=== PATIENT | female | born 1970 | race Caucasian/White ===

== ENCOUNTER 2017-10-25 03:55 | Emergency (ER) | payer OTHER ==
[~2017-10-25] VITALS: Ht 162.6 cm; Wt 90.7 kg
[~2017-10-25 03:55] MED LIST: ADVAIR 100-501 EACH; AFRIN15 ML NS; ALLERCLEAR D-21 EACH; AMARYL2 MG PO; AMOXICILLIN500 M1 PO; ANASPAZ0.125 MG; AUGMENTIN 500-1 EACH PO; BACTRIM DS TAB1 EACH PO; BACTROBAN CREAM30 G1; CEPHALEXIN 500500 M2 PO; CEPHALEXIN 500500 M3 PO; CLARITIN10 MG PO; CLOTRIMAZOLE AF30 GM TP; COLESTIPOL HCL1 G1 PO; CORICIDIN HBP1 EACH; COZAAR 25 MG TA25 M1 PO; COZAAR 50 MG TA50 M2 PO; DIFLUCAN150 M1 PO; DOXYCYCLINE 10100 MG PO; FLOMAX PO; GLIPIZIDE 10 MG10 MG PO; GLUCOSAMINE1000 MG PO; GLYBURIDE 2.52.5 MG PO; HYDROCODONE-AP1 EAC6 PO; IBUPROFEN 200200 M1 PO; IBUPROFEN 800800 MG PO; IBUPROFEN200 M2; IMODIUM A-D1 MG/5 ML; JANUMET XR 50-1 EAC1 PO; KEFLEX500 MG PO; LISINOPRIL10 MG PO; MEDROL DOSPAK21 TA1 PO; MEDROLDOSEPACK PO; MELOXICAM7.5 MG; METFORMIN HCL500 MG PO; MIDOL220 MG PO; NAPROXEN DELAY500 M1 PO; NASAL SPRAY30 ML; NORCO 5-325 TA1 EACH PO; NORFLEX100 MG PO; NYSTATIN1 EA10 MC; OXYCODONE HCL 55 MG PO; PERCOCET 5-3251 EACH PO; POLYSPORIN OINT15 GM TP; PRENATAL; PRILOSEC 20 MG20 MG PO; PROAIR HFA8.5 GM; PROAIR HFA8.5 GM INH; ROBAXIN500 MG PO; SIMVASTATIN20 MG; SIMVASTATIN20 MG PO; VENTOLIN17 GM; VICTOZA0.6 MG/0.1 SUBQ; WELLBUTRIN 75 M75 M1 PO; WELLBUTRIN SR150 MG PO; ZOFRAN ODT4 MG PO; ZPAK PO
[2017-10-25 04:01] VITALS: BP 192/65
[2017-10-25 05:39] LABS: INFLUENZA A ANTIGEN None Detected (None Detect); INFLUENZA B ANTIGEN None Detected (None Detect)
[2017-10-25] MEDS ORDERED: PROMETHAZINE/C118 ML PO (06:04)
[2017-10-25 06:14] VITALS: BP 187/76
== END 2017-10-25 06:15 | disposition home or self-care (01) ==
LOC: M.ERS 03:55 → M.TBA-ER 05:55 → M.ERS 05:55
PROVIDERS: Emergency Medicine
DX: J06.9 Acute upper respiratory infection, unspecified (principal); K21.9 Gastro-esophageal reflux disease without esophagitis; J45.909 Unspecified asthma, uncomplicated; Z86.14 Personal history of Methicillin resistant Staphylococcus aureus infection; Z90.49 Acquired absence of other specified parts of digestive tract; Z90.89 Acquired absence of other organs; Z87.891 Personal history of nicotine dependence

== ENCOUNTER 2018-05-08 09:01 | Emergency (ER) | payer BC ==
[~2018-05-08] VITALS: Ht 162.6 cm; Wt 101.2 kg
[~2018-05-08 09:01] MED LIST changes: +PROMETHAZINE/C118 ML PO
[2018-05-08] MEDS ORDERED: XANAX1 MG PO (09:15)
[2018-05-08] MEDS ORDERED: XYZAL5 MG PO (09:15)
[2018-05-08] MEDS ORDERED: COZAAR 25 MG TA25 M1 PO (09:16)
[2018-05-08] MEDS ORDERED: BUPROPION HCL100 MG PO (09:16)
[2018-05-08] MEDS ORDERED: KLOR-CON 1010 MEQ PO (09:16)
[2018-05-08] MEDS ORDERED: ZOCOR20 MG PO (09:16)
[2018-05-08] MEDS ORDERED: CINNAMON500 MG PO (09:16)
[2018-05-08 09:34] LABS: ABSOLUTE LYMPHOCYTES 0.9 thou/uL (0.8-5.3); ABSOLUTE MONOCYTES 0.2 thou/uL (0.0-1.2); ABSOLUTE NEUTROPHILS 3.3 thou/uL (1.6-8.1); BASOPHILS 0.4 %; EOSINOPHILS 0.6 %; HEMATOCRIT 32.5 % (37.0-47.0); HEMOGLOBIN 10.5 gm/dL (12.0-15.0); LYMPHOCYTES 20.9 %; MCH 26.1 pg (26.0-34.0); MCHC 32.2 g/dL (28.0-37.0); MCV 80.8 fL (80.0-100.0); MONOCYTES 5.3 %; NUCLEATED RBCS 0 /100WBC; PLATELET COUNT* 153 thou/uL (150-400); POLYS 72.8 %; RBC 4.01 mil/uL (4.20-5.00); WBC 4.5 thou/uL (4.0-11.0)
[2018-05-08 09:59] LABS: CALCIUM 9.2 mg/dL (8.5-10.1); CREATININE 0.6 mg/dL (0.6-1.3); POTASSIUM 3.9 mmol/L (3.5-5.1)
[2018-05-08 10:04] LABS: ALBUMIN 3.6 g/dL (3.4-5.0); TOTAL BILIRUBIN 0.5 mg/dL (<0.1-1.0); TOTAL PROTEIN 6.8 g/dL (6.4-8.2)
[2018-05-08 10:10] VITALS: BP 151/78
== END 2018-05-08 10:11 | disposition home or self-care (01) ==
LOC: M.ERS 09:01
PROVIDERS: Family Medicine
DX: R51 Headache (principal); E11.9 Type 2 diabetes mellitus without complications; K21.9 Gastro-esophageal reflux disease without esophagitis; J45.909 Unspecified asthma, uncomplicated; I10 Essential (primary) hypertension; F32.9 Major depressive disorder, single episode, unspecified; Z90.49 Acquired absence of other specified parts of digestive tract; Z87.891 Personal history of nicotine dependence; Z88.5 Allergy status to narcotic agent

== ENCOUNTER 2018-07-09 23:33 | Emergency (ER) | payer BC ==
[~2018-07-09] VITALS: Ht 162.6 cm; Wt 90.7 kg
[~2018-07-09 23:33] MED LIST changes: +BUPROPION HCL100 MG PO; +CINNAMON500 MG PO; +KLOR-CON 1010 MEQ PO; +XANAX1 MG PO; +XYZAL5 MG PO; +ZOCOR20 MG PO
[2018-07-10 00:26] LABS: ABSOLUTE EOSINOPHILS 0.1 thou/uL (0.0-0.7); ABSOLUTE LYMPHOCYTES 1.3 thou/uL (0.8-5.3); ABSOLUTE MONOCYTES 0.4 thou/uL (0.0-1.2); ABSOLUTE NEUTROPHILS 4.1 thou/uL (1.6-8.1); BASOPHILS 0.5 %; EOSINOPHILS 1.1 %; HEMATOCRIT 32.5 % (37.0-47.0); HEMOGLOBIN 10.4 gm/dL (12.0-15.0); LYMPHOCYTES 22.2 %; MCH 26.6 pg (26.0-34.0); MCHC 31.8 g/dL (28.0-37.0); MCV 83.6 fL (80.0-100.0); MONOCYTES 6.1 %; MPV 9.5 fl. (7.2-11.1); NUCLEATED RBCS 0 /100WBC; PLATELET COUNT* 164 thou/uL (150-400); POLYS 70.1 %; RBC 3.89 mil/uL (4.20-5.00); RDW-CV 15.2 % (10.5-14.5); WBC 5.8 thou/uL (4.0-11.0)
[2018-07-10 00:30] LABS: CALCIUM 8.7 mg/dL (8.5-10.1); CREATININE 0.6 mg/dL (0.6-1.3); POTASSIUM 3.8 mmol/L (3.5-5.1)
[2018-07-10] MEDS ORDERED: NORCO 5-325 TA1 EACH PO (00:44)
[2018-07-10] MEDS ORDERED: NEURONTIN 300300 M1 PO (00:44)
[2018-07-10] MEDS ORDERED: NABUMETONE 750750 M1 PO (00:44)
[2018-07-10 00:56] VITALS: BP 121/57
== END 2018-07-10 01:00 | disposition home or self-care (01) ==
LOC: M.ERS 23:33
PROVIDERS: Nurse Practitioner Family
DX: M54.32 Sciatica, left side (principal); E11.65 Type 2 diabetes mellitus with hyperglycemia; K58.9 Irritable bowel syndrome, unspecified; K21.9 Gastro-esophageal reflux disease without esophagitis; Z90.49 Acquired absence of other specified parts of digestive tract; J45.909 Unspecified asthma, uncomplicated; I10 Essential (primary) hypertension; F32.9 Major depressive disorder, single episode, unspecified; Z87.891 Personal history of nicotine dependence; Z88.5 Allergy status to narcotic agent; Z91.018 Allergy to other foods

== ENCOUNTER 2019-10-04 16:10 | Emergency (ER) | payer OTHER ==
[~2019-10-04] VITALS: Ht 162.6 cm; Wt 84.4 kg
[~2019-10-04 16:10] MED LIST changes: +NABUMETONE 750750 M1 PO; +NEURONTIN 300300 M1 PO
[2019-10-04] MEDS ORDERED: GLIMEPIRIDE4 MG (16:32)
[2019-10-04] MEDS ORDERED: JANUMET XR 1001 EACH PO (16:32)
[2019-10-04] MEDS ORDERED: OZEMPIC0.25 MG/0. (16:32)
[2019-10-04] MEDS ORDERED: ONZETRA XSAIL11 MG PO (16:33)
[2019-10-04] MEDS ORDERED: TROKENDI XR100 MG PO (16:33)
[2019-10-04] MEDS ORDERED: SINGULAIR 10 MG10 M1 PO (16:37)
[2019-10-04 17:03] LABS: ABSOLUTE EOSINOPHILS 0.1 thou/uL (0.0-0.7); ABSOLUTE LYMPHOCYTES 1.6 thou/uL (0.8-5.3); ABSOLUTE MONOCYTES 0.4 thou/uL (0.0-1.2); ABSOLUTE NEUTROPHILS 4.7 thou/uL (1.6-8.1); BASOPHILS 0.5 %; EOSINOPHILS 0.9 %; HEMATOCRIT 36.2 % (37.0-47.0); HEMOGLOBIN 12.2 gm/dL (12.0-15.0); LYMPHOCYTES 23.4 %; MCH 29.4 pg (26.0-34.0); MCHC 33.8 g/dL (28.0-37.0); MCV 86.8 fL (80.0-100.0); MONOCYTES 6.5 %; MPV 9.8 fl. (7.2-11.1); NUCLEATED RBCS 0 /100WBC; PLATELET COUNT* 174 thou/uL (150-400); POLYS 68.7 %; RBC 4.16 mil/uL (4.20-5.00); RDW-CV 14.2 % (10.5-14.5); WBC 6.9 thou/uL (4.0-11.0)
[2019-10-04 17:12] LABS: CALCIUM 8.6 mg/dL (8.5-10.1); CREATININE 0.7 mg/dL (0.6-1.3); POTASSIUM 3.8 mmol/L (3.5-5.1)
[2019-10-04 17:17] LABS: ALBUMIN 3.7 g/dL (3.4-5.0); TOTAL BILIRUBIN 0.3 mg/dL (<0.1-1.0)
[2019-10-04] MEDS ORDERED: BUTALB-APAP-CA1 EACH PO (19:48)
[2019-10-04 20:11] VITALS: BP 140/67
== END 2019-10-04 20:13 | disposition home or self-care (01) ==
LOC: M.ERS 16:10
PROVIDERS: Nurse Practitioner Family
DX: G43.009 Migraine without aura, not intractable, without status migrainosus (principal); K21.9 Gastro-esophageal reflux disease without esophagitis; E11.9 Type 2 diabetes mellitus without complications; Z87.891 Personal history of nicotine dependence; Z88.5 Allergy status to narcotic agent; Z91.018 Allergy to other foods; Z90.49 Acquired absence of other specified parts of digestive tract; Z98.51 Tubal ligation status; Z86.14 Personal history of Methicillin resistant Staphylococcus aureus infection; Z90.89 Acquired absence of other organs

== ENCOUNTER 2020-03-09 19:27 | Emergency (ER) | payer OTHER ==
[~2020-03-09] VITALS: Ht 162.6 cm; Wt 86.2 kg
[~2020-03-09 19:27] MED LIST changes: +BUTALB-APAP-CA1 EACH PO; +GLIMEPIRIDE4 MG; +JANUMET XR 1001 EACH PO; +ONZETRA XSAIL11 MG PO; +OZEMPIC0.25 MG/0.; +SINGULAIR 10 MG10 M1 PO; +TROKENDI XR100 MG PO
[2020-03-09 19:54] LABS: URINE BILIRUBIN NEGATIVE (Negative); URINE BLOOD NEGATIVE (Negative); URINE CLARITY CLEAR; URINE COLOR YELLOW; URINE GLUCOSE-RANDOM NEGATIVE (Negative); URINE KETONES NEGATIVE (Negative); URINE LEUKOCYTES-REFLEX NEGATIVE (Negative); URINE NITRITE-REFLEX NEGATIVE (Negative); URINE PROTEIN NEGATIVE (Negative); URINE SPECIFIC GRAVITY >= 1.030 (1.005-1.030); URINE UROBILINOGEN 0.2 E.U./dl (0.2-1.0)
[2020-03-09 20:16] LABS: ABSOLUTE LYMPHOCYTES 1.2 thou/uL (0.8-5.3); ABSOLUTE MONOCYTES 0.3 thou/uL (0.0-1.2); ABSOLUTE NEUTROPHILS 4.9 thou/uL (1.6-8.1); BASOPHILS 0.6 %; EOSINOPHILS 0.6 %; HEMATOCRIT 34.7 % (37.0-47.0); HEMOGLOBIN 11.8 gm/dL (12.0-15.0); LYMPHOCYTES 19.1 %; MCH 29.8 pg (26.0-34.0); MCV 87.8 fL (80.0-100.0); MONOCYTES 4.7 %; MPV 9.9 fl. (7.2-11.1); NUCLEATED RBCS 0 /100WBC; PLATELET COUNT* 135 thou/uL (150-400); RBC 3.96 mil/uL (4.20-5.00); RDW-CV 14.4 % (10.5-14.5); WBC 6.5 thou/uL (4.0-11.0)
[2020-03-09 20:20] LABS: CALCIUM 8.3 mg/dL (8.5-10.1); CREATININE 0.7 mg/dL (0.6-1.3); POTASSIUM 3.2 mmol/L (3.5-5.1)
[2020-03-09 20:25] LABS: ALBUMIN 3.7 g/dL (3.4-5.0); TOTAL BILIRUBIN 0.3 mg/dL (<0.1-1.0); TOTAL PROTEIN 6.7 g/dL (6.4-8.2)
[2020-03-09 20:30] LABS: PROTIME 10.8 Seconds (9.20-11.50)
[2020-03-09] MEDS ORDERED: ZOFRAN ODT4 MG PO (21:39)
[2020-03-09] MEDS ORDERED: HYDROCODON-ACE1 EAC7 PO ×2 (21:39→21:50)
[2020-03-09 21:49] VITALS: BP 121/70
[2020-03-09] MEDS ORDERED: PHENERGAN 25 MG25 M1 PO (21:50)
--- NOTE | 2020-03-10 15:38 | EKG ---
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
== END 2020-03-09 21:50 | disposition home or self-care (01) ==
LOC: M.ERS 19:27
PROVIDERS: Personal Emergency Response Attendant
DX: A08.4 Viral intestinal infection, unspecified (principal); R42 Dizziness and giddiness; K58.9 Irritable bowel syndrome, unspecified; K21.9 Gastro-esophageal reflux disease without esophagitis; G43.909 Migraine, unspecified, not intractable, without status migrainosus; E11.9 Type 2 diabetes mellitus without complications; I10 Essential (primary) hypertension; Z90.49 Acquired absence of other specified parts of digestive tract; Z98.51 Tubal ligation status; Z98.890 Other specified postprocedural states; Z86.14 Personal history of Methicillin resistant Staphylococcus aureus infection; Z87.891 Personal history of nicotine dependence; Z88.5 Allergy status to narcotic agent; Z91.018 Allergy to other foods

== ENCOUNTER 2021-02-17 17:57 | Emergency (ER) | payer OTHER ==
[~2021-02-17] VITALS: Ht 162.6 cm; Wt 81.7 kg
[~2021-02-17 17:57] MED LIST changes: +HYDROCODON-ACE1 EAC7 PO; +PHENERGAN 25 MG25 M1 PO
[2021-02-17] MEDS ORDERED: APPLE CIDER VI300 MG PO (18:09)
[2021-02-17 18:38] LABS: BE -1.8 mmol/L (-2 to +3); PCO2 35.4 mmHg (35.0-45.0); PO2 72.2 mmHg (75.0-100.0); pH 7.415 (7.340-7.450)
[2021-02-17 18:39] LABS: ABSOLUTE LYMPHOCYTES 0.7 thou/uL (0.8-5.3); ABSOLUTE MONOCYTES 0.2 thou/uL (0.0-1.2); BASOPHILS 0.3 %; EOSINOPHILS 0.1 %; HEMATOCRIT 38.6 % (37.0-47.0); HEMOGLOBIN 12.8 gm/dL (12.0-15.0); LYMPHOCYTES 23.2 %; MCH 28.2 pg (26.0-34.0); MCHC 33.1 g/dL (28.0-37.0); MCV 85.1 fL (80.0-100.0); MONOCYTES 7.2 %; MPV 8.7 fl. (7.2-11.1); NUCLEATED RBCS 0 /100WBC; PLATELET COUNT* 148 thou/uL (150-400); POLYS 69.2 %; RBC 4.53 mil/uL (4.20-5.00); RDW-CV 14.9 % (10.5-14.5); WBC 2.8 thou/uL (4.0-11.0)
[2021-02-17 18:47] LABS: CALCIUM 8.6 mg/dL (8.5-10.1); CREATININE 0.7 mg/dL (0.6-1.3); POTASSIUM 3.5 mmol/L (3.5-5.1)
[2021-02-17 18:58] LABS: ALBUMIN 3.7 g/dL (3.4-5.0); TOTAL BILIRUBIN 0.2 mg/dL (<0.1-1.0); TOTAL PROTEIN 7.3 g/dL (6.4-8.2)
[2021-02-17] MEDS ORDERED: VENTOLIN HFA 1818 GM INH (20:17)
[2021-02-17] MEDS ORDERED: ZPAK PO (20:17)
[2021-02-17 21:01] VITALS: BP 103/50
--- NOTE | 2021-02-18 10:45 | EKG ---
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 : 1970 Requested By: Iveth Medrano Order Number: [id number] MD: Jorge Cullen Measurements Intervals [place] Rate: 96 P: 44 RI: 166 QRS: 3 QRSD: 75 T: 16 QT: 324 QTc: 410 Interpretive Statements Sinus rhythm Low voltage, precordial leads Baseline wander in lead(s) II,III,aVF Compared to ECG 03/09/2020 20:12:44 no change Electronically Signed On 02-18-2021 10:45:31 CDT by Jorge Cullen [email or web address] <ELECTRONICALLY SIGNED> By: Jorge Cullen MD, [facility] 02/18/21 1045 1842 1842 Jorge Cullen MD, [facility] /EPI
== END 2021-02-17 21:02 | disposition home or self-care (01) ==
LOC: M.ERS 17:57
PROVIDERS: Nurse Practitioner Family
DX: U07.1 COVID-19 (principal); E11.9 Type 2 diabetes mellitus without complications; G43.909 Migraine, unspecified, not intractable, without status migrainosus; K21.9 Gastro-esophageal reflux disease without esophagitis; J45.909 Unspecified asthma, uncomplicated; Z88.5 Allergy status to narcotic agent; Z91.018 Allergy to other foods; Z90.49 Acquired absence of other specified parts of digestive tract; Z90.89 Acquired absence of other organs; Z98.51 Tubal ligation status; Z86.14 Personal history of Methicillin resistant Staphylococcus aureus infection; Z87.891 Personal history of nicotine dependence

== ENCOUNTER 2021-02-19 20:33 | Inpatient (IN) | payer OTHER ==
[~2021-02-19] VITALS: Ht 162.6 cm; Wt 76.7 kg
[~2021-02-19 20:33] MED LIST changes: +APPLE CIDER VI300 MG PO; +VENTOLIN HFA 1818 GM INH
[2021-02-19 20:48] VITALS: BP 134/70
[2021-02-19 21:31] LABS: ABSOLUTE LYMPHOCYTES 0.4 thou/uL (0.8-5.3); ABSOLUTE MONOCYTES 0.1 thou/uL (0.0-1.2); ABSOLUTE NEUTROPHILS 2.6 thou/uL (1.6-8.1); BASOPHILS 0.1 %; EOSINOPHILS 0.2 %; HEMATOCRIT 35.3 % (37.0-47.0); HEMOGLOBIN 12.1 gm/dL (12.0-15.0); LYMPHOCYTES 11.1 %; MCH 28.6 pg (26.0-34.0); MCHC 34.1 g/dL (28.0-37.0); MCV 83.7 fL (80.0-100.0); MONOCYTES 4.6 %; MPV 8.8 fl. (7.2-11.1); NUCLEATED RBCS 0 /100WBC; PLATELET COUNT* 160 thou/uL (150-400); RBC 4.22 mil/uL (4.20-5.00); RDW-CV 15.1 % (10.5-14.5); WBC 3.2 thou/uL (4.0-11.0)
[2021-02-19 21:32] LABS: BE -0.2 mmol/L (-2 to +3); PCO2 36.5 mmHg (35.0-45.0); PO2 70.6 mmHg (75.0-100.0); pH 7.432 (7.340-7.450)
[2021-02-19 21:48] LABS: CALCIUM 8.6 mg/dL (8.5-10.1); CREATININE 0.7 mg/dL (0.6-1.3); POTASSIUM 3.3 mmol/L (3.5-5.1)
[2021-02-19 21:58] LABS: ALBUMIN 3.4 g/dL (3.4-5.0); TOTAL BILIRUBIN 0.1 mg/dL (<0.1-1.0); TOTAL PROTEIN 6.5 g/dL (6.4-8.2)
[2021-02-19 23:22] VITALS: BP 115/54
[2021-02-20] VITALS (7 sets, daily range): BP systolic 111–136; BP diastolic 56–68
--- NOTE | 2021-02-20 14:03 | EKG ---
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 : 1970 Requested By: Iveth Medrano Order Number: [id number] MD: Ede Hussein Measurements Intervals [place] Rate: 97 P: 39 CT: 154 QRS: -4 QRSD: 70 T: 6 QT: 326 QTc: 414 Interpretive Statements Sinus rhythm Low voltage, precordial leads Compared to ECG 02/17/2021 18:42:20 No significant changes Electronically Signed On 02-20-2021 14:03:37 CDT by Ede Hussein [email or web address] <ELECTRONICALLY SIGNED> By: Ede Hussein MD, [facility] 02/20/21 1403 01 01 Ede Hussein MD, [facility] /EPI
[2021-02-21] VITALS (7 sets, daily range): BP systolic 92–120; BP diastolic 49–66
[2021-02-21 05:07] LABS: HEMATOCRIT 31.8 % (37.0-47.0); HEMOGLOBIN 10.5 gm/dL (12.0-15.0); MCH 28.1 pg (26.0-34.0); MCV 85.1 fL (80.0-100.0); MPV 9.8 fl. (7.2-11.1); RBC 3.73 mil/uL (4.20-5.00); RDW-CV 14.8 % (10.5-14.5); WBC 3.3 thou/uL (4.0-11.0)
[2021-02-21 05:11] LABS: CALCIUM 8.2 mg/dL (8.5-10.1); CREATININE 0.6 mg/dL (0.6-1.3); POTASSIUM 3.8 mmol/L (3.5-5.1)
[2021-02-22] VITALS (17 sets, daily range): BP systolic 95–129; BP diastolic 41–71
[2021-02-22 04:39] LABS: HEMATOCRIT 33.8 % (37.0-47.0); HEMOGLOBIN 11.2 gm/dL (12.0-15.0); MCH 28.3 pg (26.0-34.0); MCHC 33.2 g/dL (28.0-37.0); MCV 85.1 fL (80.0-100.0); MPV 8.5 fl. (7.2-11.1); RBC 3.97 mil/uL (4.20-5.00); RDW-CV 15.5 % (10.5-14.5); WBC 5.2 thou/uL (4.0-11.0)
[2021-02-22 04:55] LABS: CREATININE 0.6 mg/dL (0.6-1.3); POTASSIUM 3.6 mmol/L (3.5-5.1)
[2021-02-23] VITALS (20 sets, daily range): BP systolic 93–131; BP diastolic 42–70
[2021-02-23 05:22] LABS: HEMATOCRIT 33.4 % (37.0-47.0); HEMOGLOBIN 11.2 gm/dL (12.0-15.0); MCH 28.7 pg (26.0-34.0); MCHC 33.7 g/dL (28.0-37.0); MPV 8.5 fl. (7.2-11.1); RBC 3.93 mil/uL (4.20-5.00); RDW-CV 14.9 % (10.5-14.5); WBC 4.7 thou/uL (4.0-11.0)
[2021-02-23 05:30] LABS: CALCIUM 8.2 mg/dL (8.5-10.1); CREATININE 0.5 mg/dL (0.6-1.3); POTASSIUM 3.6 mmol/L (3.5-5.1)
[2021-02-24] VITALS (24 sets, daily range): BP systolic 92–126; BP diastolic 37–66
[2021-02-24 04:37] LABS: HEMATOCRIT 35.4 % (37.0-47.0); HEMOGLOBIN 11.5 gm/dL (12.0-15.0); MCH 27.8 pg (26.0-34.0); MCHC 32.6 g/dL (28.0-37.0); MCV 85.3 fL (80.0-100.0); MPV 8.3 fl. (7.2-11.1); RBC 4.15 mil/uL (4.20-5.00); RDW-CV 15.5 % (10.5-14.5); WBC 7.6 thou/uL (4.0-11.0)
[2021-02-24 04:52] LABS: CALCIUM 8.6 mg/dL (8.5-10.1); CREATININE 0.5 mg/dL (0.6-1.3); POTASSIUM 3.5 mmol/L (3.5-5.1)
[2021-02-24 09:36] LABS: PCO2 45.4 mmHg (35.0-45.0); PO2 75.7 mmHg (75.0-100.0)
[2021-02-25] VITALS (46 sets, daily range): BP systolic 80–178; BP diastolic 41–79
[2021-02-25 08:10] LABS: HEMATOCRIT 34.3 % (37.0-47.0); HEMOGLOBIN 11.1 gm/dL (12.0-15.0); MCH 27.4 pg (26.0-34.0); MCHC 32.3 g/dL (28.0-37.0); MCV 84.9 fL (80.0-100.0); MPV 8.4 fl. (7.2-11.1); RBC 4.04 mil/uL (4.20-5.00); RDW-CV 15.7 % (10.5-14.5)
[2021-02-25 08:23] LABS: CALCIUM 8.2 mg/dL (8.5-10.1); CREATININE 0.6 mg/dL (0.6-1.3); POTASSIUM 3.3 mmol/L (3.5-5.1)
[2021-02-25 13:46] LABS: BE 0.3 mmol/L (-2 to +3); PO2 106.2 mmHg (75.0-100.0)
[2021-02-25 13:49] LABS: PCO2 65.4 mmHg (35.0-45.0)
[2021-02-25 14:23] LABS: HEMOGLOBIN 10.5 gm/dL (12.0-15.0); MCH 27.7 pg (26.0-34.0); MCHC 31.9 g/dL (28.0-37.0); MPV 8.3 fl. (7.2-11.1); RBC 3.79 mil/uL (4.20-5.00); RDW-CV 15.5 % (10.5-14.5)
[2021-02-25 14:31] LABS: CALCIUM 7.6 mg/dL (8.5-10.1); CREATININE 0.9 mg/dL (0.6-1.3); POTASSIUM 3.8 mmol/L (3.5-5.1)
[2021-02-25 15:42] LABS: BE -0.4 mmol/L (-2 to +3); PCO2 45.6 mmHg (35.0-45.0); pH 7.362 (7.340-7.450)
[2021-02-26] VITALS (63 sets, daily range): BP systolic 84–173; BP diastolic 39–75
[2021-02-26 04:16] LABS: HEMATOCRIT 32.5 % (37.0-47.0); HEMOGLOBIN 10.7 gm/dL (12.0-15.0); MCH 28.1 pg (26.0-34.0); MCHC 32.8 g/dL (28.0-37.0); MCV 85.8 fL (80.0-100.0); MPV 8.8 fl. (7.2-11.1); RBC 3.79 mil/uL (4.20-5.00); RDW-CV 15.6 % (10.5-14.5); WBC 5.9 thou/uL (4.0-11.0)
[2021-02-26 04:22] LABS: CALCIUM 8.3 mg/dL (8.5-10.1); CREATININE 0.8 mg/dL (0.6-1.3); POTASSIUM 3.2 mmol/L (3.5-5.1)
[2021-02-26 08:31] LABS: BE 8.6 mmol/L (-2 to +3); PCO2 47.3 mmHg (35.0-45.0)
[2021-02-26 08:37] LABS: PO2 59.4 mmHg (75.0-100.0)
[2021-02-26 14:36] LABS: APTT 22.4 Seconds (25.0-31.3); INR 1.1; PROTIME 11.3 Seconds (9.20-11.50)
[2021-02-26 17:12] LABS: PCO2 46.5 mmHg (35.0-45.0); pH 7.428 (7.340-7.450)
[2021-02-26 17:14] LABS: PO2 57.1 mmHg (75.0-100.0)
[2021-02-26 17:19] LABS: CALCIUM 7.9 mg/dL (8.5-10.1); CREATININE 0.6 mg/dL (0.6-1.3); MAGNESIUM 2.3 mg/dL (1.8-2.4); PHOSPHORUS* 2.7 mg/dL (2.5-4.9); POTASSIUM 4.4 mmol/L (3.5-5.1)
[2021-02-26 17:54] LABS: ALBUMIN 2.1 g/dL (3.4-5.0); DIRECT BILIRUBIN 0.2 mg/dL (<0.1-0.3); TOTAL BILIRUBIN 0.4 mg/dL (<0.1-1.0); TOTAL PROTEIN 5.9 g/dL (6.4-8.2)
--- NOTE | 2021-02-26 22:16 | CON ---
[address] [address] CONSULTATION Name: JILLIAN EL Room: [address] IN .R.#: [id number] Admission: 02/19/21 Attend Phys: Maxx Machuca MD Discharge: Date of : 68 Report #: [id number] THIS REPORT FOR: cc: Sanket Youngblood MD, Anthony MD Pervez,Evan DE LEON ~ DOC #: [id number] Evan Christianson MD CONSULT REQUESTED BY: Dr. Cortez. INDICATION FOR CONSULTATION: Acute respiratory failure secondary to COVID-19. HISTORY OF PRESENT ILLNESS: The patient is a 50-year-old female. She is admitted here initially on 02/19 with COVID-19. There are other family members also admitted to this hospital with COVID-19. She has a past medical history as mentioned below. This does include a history of diabetes as well as MRSA infections, as well as bronchial asthma. Initially, the patient is noted to be saturating 77% on room air. She initially was maintaining O2 saturation with nasal cannula. She has been treated with dexamethasone at 6 mg as well as remdesivir severe. She, I understand, may have recently received Raheem and Raheem COVID-19 vaccine. She has not received plasma or Actemra. The patient's respiratory status has gradually declined to the point that she has been endotracheally intubated yesterday. The patient currently is on 100% FiO2. She is on 12 of PEEP. She is maintaining O2 saturation in the low 90s. She continues to have a high-grade fever up to 38.0 yesterday. The patient is afebrile today. The patient is sedated with propofol, is on low dose norepinephrine. She is unable to provide a further history or review of systems. PAST MEDICAL HISTORY: Bronchial asthma, MRSA infections, diabetes, GERD, irritable bowel syndrome, bladder incontinence, bladder sling surgery, appendectomy, tonsillectomy, tubal ligation, left shoulder surgery, hypertension, depression, migraines. SOCIAL HISTORY: There is a previous history of smoking, unable to quantify at this time. No known history of heavy alcohol use. She is reported to use some alcohol, unable to quantify exactly. No known history of illegal drug use. CURRENT MEDICATIONS: List in [employer] reviewed. HOME MEDICATIONS: List in [employer] reviewed. ALLERGIES: M[place]PHINE [place] [address] CONSULTATION Name: JILLIAN EL Room: [address]#: [id number] Admission: 02/19/21 Attend Phys: Maxx Machuca MD Discharge: Date of : 68 Report #: [id number] FAMILY HISTORY: Her son and also got admitted to this hospital with COVID-19. PHYSICAL EXAMINATION: GENERAL: She is sedated with propofol, is currently at RASS -2. VITAL SIGNS: Has a pulse of 89 and a blood pressure of 110/56, saturating 92-93%. She is on pressure control mode of ventilation, pressure control 22, rate 22, having a tidal volume of 450-500, PEEP is 12. She was not overbreathing the ventilator, but I cut down the rate to 18. She continued to breathe at 22. HEENT: Normocephalic and atraumatic. Pupils are bilaterally equal and somewhat dilated. Endotracheal tube was in position. NECK: Does not show raised JVP asymmetry, mass or lymph nodes. She has a central line in place. CHEST: Symmetrical expansion on inspection and palpation. On auscultation, breath sounds are bilaterally equal, but mildly decreased. No added sounds. HEART: Regular. There is no murmur. ABDOMEN: Soft and nontender. EXTREMITIES: Lower extremities show no edema and no calf tenderness. SKIN: Dry and intact. NEUROLOGIC: Moves all extremities bilaterally equally to pain. Note that she is sedated with propofol. LABORATORY DATA: The patient's chest x-ray from yesterday is reviewed. This shows worsening bilateral infiltrates and ARDS secondary to COVID-19. The patient's lab work is in [employer] and this is reviewed. Low potassium today is noted. Metabolic alkalosis on arterial blood gases with marked hypoxemia noted. ASSESSMENT AND PLAN: 1. Acute hypoxemic respiratory failure secondary to COVID-19. At this time, I would recommend continuing with propofol. I will go ahead and add a fentanyl drip. We will follow propofol related labs. We will use p.r.n. Versed. Recommend that we place an A-line. Note that her potassium is low, which I am replacing. Once this is replaced, I intend to repeat labs and then we will see if we can diurese her, possibly with some albumin as well. Tentatively, I plan to prone her this evening, but I will reassess this evening. We will reassess the ventilator once Arterial blood gases are repeated this afternoon. Chest x-ray today is also pending. 2. COVID-19 with ARDS. She has received 5 doses of remdesivir already, I requested 5 more. Considering severe hypoxemia, I would go ahead and increase the Decadron dose to 8 mg b.i.d. Note that the current guidelines allow up to 10 b.i.d., with a definite benefit at 6 mg. I would recommend that we go ahead and give one dose of Actemra as she appears t ohave cytokine storm. [address] [address] CONSULTATION Name: JILLIAN EL Room: [address] ADM IN M.R.#: [id number] Admission: 02/19/21 Attend Phys: Maxx Machuca MD Discharge: Date of : 68 Report #: [id number] At this time, I do not feel strongly either way regarding administering convalescent plasma. I will review with the ID service, which are also being consulted. Expect limited benefit from additional doses of Remdesivir but still favour 5 more doses as very hypoxic and benefit > risk . We will follow LFTs. 3. Pulmonary infiltrates. These have been worsening. She has also been spiking a fever, it has also been 1 week. That she has been here, it has been 1 week before that, then understand she was COVID-19 positive. Therefore, I do favor that we cover for bacterial infections. We will do cultures and serologies prior to this. We will start cefepime. I will review with ID. My suspicion of MRSA infection at this time is not high, but she is reported to have had 3 MRSA infections in the past therefore at least for 48 hrs will cover MRSA as well. Will start with broad Abx then narrow per C/S and serlogies. 4. Bronchial asthma/history of smoking. Steroid as above, also on DuoNeb. 5. Hypotension/fluid and electrolytes. Hopefully, blood pressure will increase as we add fentanyl and cut back on propofol. Although, I am continuing with propofol as well. We will do an echocardiogram. We will replace potassium. If blood pressure is stable, then I will consider diuresis this evening. 6. Diabetes. Recommend increasing insulin as needed to maintain blood glucose as less than 200. 7. Evaluation with thromboembolic phenomena/deep venous thrombosis prophylaxis. I increased Lovenox to 40 b.i.d. intermediate dose. We will do an echocardiogram. If D-dimer is elevated, then we will do venous Dopplers. She is not stable to do a CTA chest. 8. Gastroesophageal reflux disease/gastrointestinal prophylaxis, Protonix. 9. Clostridium difficile prophylaxis. We will add Lactinex. The patient is critically ill at this time. Total time spent providing critical care to this patient today is about 1 hour. Evan Christianson MD AP/CHONG <ELECTRONICALLY SIGNED> By: Evan Christianson MD 02/26/21 2216 1050 [id number] Christianson MD /nt
[2021-02-27] VITALS (38 sets, daily range): BP systolic 97–164; BP diastolic 47–72
[2021-02-27 04:40] LABS: HEMATOCRIT 29.6 % (37.0-47.0); HEMOGLOBIN 9.7 gm/dL (12.0-15.0); MCH 27.8 pg (26.0-34.0); MCHC 32.7 g/dL (28.0-37.0); MCV 85.1 fL (80.0-100.0); NUCLEATED RBCS 0 /100WBC; PLATELET COUNT* 191 thou/uL (150-400); RBC 3.48 mil/uL (4.20-5.00); RDW-CV 15.5 % (10.5-14.5); WBC 4.5 thou/uL (4.0-11.0)
[2021-02-27 04:47] LABS: LIPASE 51 U/L (73-393); TRIGLYCERIDE 154 mg/dL (<150)
[2021-02-27 04:56] LABS: ALBUMIN 2.6 g/dL (3.4-5.0); CALCIUM 7.9 mg/dL (8.5-10.1); CREATININE 0.7 mg/dL (0.6-1.3); MAGNESIUM 2.1 mg/dL (1.8-2.4); POTASSIUM 3.5 mmol/L (3.5-5.1); TOTAL BILIRUBIN 0.3 mg/dL (<0.1-1.0); TOTAL PROTEIN 6.3 g/dL (6.4-8.2)
[2021-02-27 05:42] LABS: ABSOLUTE LYMPHOCYTES 0.1 thou/uL (0.8-5.3); ABSOLUTE MONOCYTES 0.1 thou/uL (0.0-1.2); ABSOLUTE NEUTROPHILS 4.3 thou/uL (1.6-8.1)
[2021-02-27 05:43] LABS: ANISOCYTOSIS 1+; PLATELET ESTIMATE ADEQUATE; POIKILOCYTOSIS 1+
[2021-02-27 08:16] LABS: BE 4.6 mmol/L (-2 to +3); PCO2 43.8 mmHg (35.0-45.0); pH 7.442 (7.340-7.450)
[2021-02-27 08:19] LABS: PO2 140.3 mmHg (75.0-100.0)
--- NOTE | 2021-02-27 08:25 | 2DMMODE ---
[place] [address] 2 D/M-MODE ECHOCARDIOGRAM Name: JILLIAN EL Room: [address] IN .R.#: [id number] Admission: 02/19/21 Attend Phys: Maxx Machuca, Discharge: Date of : 68 Date of Service: 02/27/21 0824 Report #: [id number] THIS REPORT FOR: cc: Sanket Youngblood MD, Anthony MD Blick,Jorge Lundy MD [facility] ~ APPROVED REPORT Study performed: 02/26/2021 15:08:47 EXAM: Comprehensive 2D, Doppler, and color-flow Echocardiogram Patient Location: In-Patient Room #: 003 Status: routine BSA: 1.86 HR: 80 bpm BP: 110/50 mmHg Rhythm: NSR Other Information Study Quality: Good Indications Dyspnea 2D Dimensions IVSd: 11.92 (7-11mm) LVOT Diam: 19.28 (18-24mm) LVDd: 42.03 mm PWd: 8.06 (7-11mm) Ascending Ao: 26.86 (22-36mm) LVDs: 23.27 (25-40mm) Aortic Root: 28.81 mm Volumes Left Atrial Volume (Systole) LA ESV Index: 14.90 mL/m2 Aortic Valve AoV Peak Song.: 1.90 m/s AO Peak Gr.: 14.45 mmHg LVOT Max P.86 mmHg AO Mean Gr.: 7.50 mmHg LVOT Mean P.37 mmHg LVOT Max V: 1.49 m/s AO V2 VTI: 31.29 cm LVOT Mean V: 0.95 m/s TIERRA (VTI): 2.71 cm2 LVOT V1 VTI: 29.03 [place] [address] 2 D/M-MODE ECHOCARDIOGRAM Name: JILLIAN EL Room: [address] IN [facility]#: [id number] Admission: 02/19/21 Attend Phys: Maxx Machuca, Discharge: Date of : 68 Date of Service: 02/27/21 0824 Report #: [id number] Mitral Valve E/A Ratio: 1.52 MV Decel. Time: 225.84 ms MV E Max Song.: 0.80 m/s MV PHT: 65.49 ms MVA (PHT): 3.36 cm2 TDI E/Lateral E': 5.33 E/Medial E': 8.00 Medial E' Song.: 0.10 m/s Lateral E' Song.: 0.15 m/s Pulmonary Valve PV Peak Song.: 1.09 m/s PV Peak Gr.: 4.73 mmHg Tricuspid Valve RAP Estimate: 5.00 mmHg TR Peak Gr.: 30.79 mmHg RVSP: 35.00 mmHg PA Pressure: 35.00 mmHg Left Ventricle The left ventricle is normal size. There is normal LV segmental wall motion. There is normal left ventricular wall thickness. Left ventricular systolic function is normal. The left ventricular ejection fraction is within the normal range. LVEF is 60-65%. The left ventricular diastolic function is normal. Right Ventricle The right ventricle is normal size. The right ventricular systolic function is normal. Atria The left atrium size is normal. The right atrium size is normal. Aortic Valve The aortic valve is normal in structure. No aortic regurgitation is present. There is no aortic valvular stenosis. Mitral Valve The mitral valve is normal in structure. There is trace mitral valve regurgitation noted. No evidence of mitral valve stenosis. Tricuspid Valve The tricuspid valve is normal in structure. Trace tricuspid regurgitation. estimated pa pressure 40 [place] [address] 2 D/M-MODE ECHOCARDIOGRAM Name: JILLIAN EL Room: [address] [place] [facility]#: [id number] Admission: 02/19/21 Attend Phys: Maxx Machuca, Discharge: Date of : 68 Date of Service: 02/27/21 0824 Report #: [id number] Pulmonic Valve The pulmonary valve is normal in structure. Trace pulmonic regurgitation. Great Vessels The aortic root is normal in size. IVC is normal in size and collapses >50% with inspiration. Pericardium There is no pericardial effusion. <Conclusion> LVEF is 60-65%. There is trace mitral valve regurgitation noted. Trace tricuspid regurgitation. estimated pa pressure 40 mm Hg <ELECTRONICALLY SIGNED> By: Jorge Cullen MD, FACC 02/27/21823 3 3 Jorge Cullen MD, FACC /INF
[2021-02-27 11:49] LABS: URINE BILIRUBIN NEGATIVE (Negative); URINE BLOOD NEGATIVE (Negative); URINE CLARITY CLEAR; URINE COLOR YELLOW; URINE GLUCOSE-RANDOM NEGATIVE (Negative); URINE KETONES 1+ (Negative); URINE LEUKOCYTES-REFLEX NEGATIVE (Negative); URINE NITRITE-REFLEX NEGATIVE (Negative); URINE PROTEIN NEGATIVE (Negative); URINE SPECIFIC GRAVITY 1.015 (1.005-1.030); URINE UROBILINOGEN 0.2 E.U./dl (0.2-1.0)
[2021-02-27 15:21] LABS: CALCIUM 8.4 mg/dL (8.5-10.1); CREATININE 0.7 mg/dL (0.6-1.3); POTASSIUM 4.1 mmol/L (3.5-5.1)
[2021-02-27 15:25] LABS: BE 7.2 mmol/L (-2 to +3); PO2 66.9 mmHg (75.0-100.0); pH 7.431 (7.340-7.450)
[2021-02-28] VITALS (28 sets, daily range): BP systolic 93–155; BP diastolic 43–80
[2021-02-28 02:29] LABS: BE 4.5 mmol/L (-2 to +3); pH 7.395 (7.340-7.450)
[2021-02-28 02:32] LABS: PCO2 50.1 mmHg (35.0-45.0); PO2 55.9 mmHg (75.0-100.0)
[2021-02-28 03:44] LABS: ABSOLUTE LYMPHOCYTES 0.2 thou/uL (0.8-5.3); ABSOLUTE MONOCYTES 0.2 thou/uL (0.0-1.2); ABSOLUTE NEUTROPHILS 5.8 thou/uL (1.6-8.1); BASOPHILS 0.1 %; EOSINOPHILS 0.3 %; HEMATOCRIT 28.9 % (37.0-47.0); HEMOGLOBIN 9.3 gm/dL (12.0-15.0); LYMPHOCYTES 3.9 %; MCHC 32.1 g/dL (28.0-37.0); MONOCYTES 2.5 %; MPV 9.4 fl. (7.2-11.1); NUCLEATED RBCS 0 /100WBC; PLATELET COUNT* 186 thou/uL (150-400); POLYS 93.2 %; RBC 3.33 mil/uL (4.20-5.00); RDW-CV 16.2 % (10.5-14.5); WBC 6.2 thou/uL (4.0-11.0)
[2021-02-28 04:04] LABS: PHOSPHORUS* 3.5 mg/dL (2.5-4.9)
[2021-02-28 04:05] LABS: ALBUMIN 2.8 g/dL (3.4-5.0); CALCIUM 8.4 mg/dL (8.5-10.1); CREATININE 0.7 mg/dL (0.6-1.3); MAGNESIUM 2.2 mg/dL (1.8-2.4); POTASSIUM 4.2 mmol/L (3.5-5.1); TOTAL BILIRUBIN 0.3 mg/dL (<0.1-1.0)
[2021-02-28 07:56] LABS: BE 3.3 mmol/L (-2 to +3); PCO2 45.4 mmHg (35.0-45.0); PO2 84.9 mmHg (75.0-100.0); pH 7.414 (7.340-7.450)
[2021-02-28 15:10] LABS: CALCIUM 8.7 mg/dL (8.5-10.1); CREATININE 0.6 mg/dL (0.6-1.3); MAGNESIUM 2.1 mg/dL (1.8-2.4); POTASSIUM 4.6 mmol/L (3.5-5.1)
[2021-02-28 15:32] LABS: BE 5.2 mmol/L (-2 to +3); PCO2 47.4 mmHg (35.0-45.0); PO2 109.4 mmHg (75.0-100.0); pH 7.425 (7.340-7.450)
[2021-02-28 22:06] LABS: MYCOPLASMA PNEUMONIA IgG <100 U/mL (0-99); MYCOPLASMA PNEUMONIA IgM <770 U/mL (0-769)
[2021-03-01] VITALS (33 sets, daily range): BP systolic 95–162; BP diastolic 42–63
[2021-03-01 05:36] LABS: ABSOLUTE LYMPHOCYTES 0.3 thou/uL (0.8-5.3); ABSOLUTE MONOCYTES 0.1 thou/uL (0.0-1.2); ABSOLUTE NEUTROPHILS 3.8 thou/uL (1.6-8.1); BASOPHILS 0.1 %; EOSINOPHILS 0.8 %; HEMATOCRIT 29.1 % (37.0-47.0); HEMOGLOBIN 9.3 gm/dL (12.0-15.0); LYMPHOCYTES 6.2 %; MCH 27.9 pg (26.0-34.0); MCHC 32.1 g/dL (28.0-37.0); MCV 86.8 fL (80.0-100.0); MONOCYTES 3.1 %; MPV 9.3 fl. (7.2-11.1); NUCLEATED RBCS 0 /100WBC; PLATELET COUNT* 166 thou/uL (150-400); POLYS 89.8 %; RBC 3.35 mil/uL (4.20-5.00); RDW-CV 15.6 % (10.5-14.5); WBC 4.2 thou/uL (4.0-11.0)
[2021-03-01 05:59] LABS: ALBUMIN 2.8 g/dL (3.4-5.0); CALCIUM 8.1 mg/dL (8.5-10.1); CREATININE 0.7 mg/dL (0.6-1.3); MAGNESIUM 2.1 mg/dL (1.8-2.4); POTASSIUM 4.2 mmol/L (3.5-5.1); TOTAL BILIRUBIN 0.4 mg/dL (<0.1-1.0); TOTAL PROTEIN 5.9 g/dL (6.4-8.2)
[2021-03-01 08:01] LABS: BE 6.6 mmol/L (-2 to +3); PO2 80.8 mmHg (75.0-100.0); pH 7.414 (7.340-7.450)
[2021-03-01 08:02] LABS: PCO2 51.5 mmHg (35.0-45.0)
[2021-03-02] VITALS (75 sets, daily range): BP systolic 96–124; BP diastolic 33–56
[2021-03-02 05:17] LABS: HEMATOCRIT 29.8 % (37.0-47.0); HEMOGLOBIN 9.7 gm/dL (12.0-15.0); MCH 28.1 pg (26.0-34.0); MCHC 32.5 g/dL (28.0-37.0); MCV 86.4 fL (80.0-100.0); MPV 9.6 fl. (7.2-11.1); NUCLEATED RBCS 0 /100WBC; PLATELET COUNT* 155 thou/uL (150-400); RBC 3.44 mil/uL (4.20-5.00); RDW-CV 15.6 % (10.5-14.5); WBC 4.5 thou/uL (4.0-11.0)
[2021-03-02 05:31] LABS: PHOSPHORUS* 4.5 mg/dL (2.5-4.9)
[2021-03-02 05:42] LABS: ALBUMIN 2.8 g/dL (3.4-5.0); CALCIUM 8.4 mg/dL (8.5-10.1); CREATININE 0.6 mg/dL (0.6-1.3); MAGNESIUM 2.5 mg/dL (1.8-2.4); POTASSIUM 4.7 mmol/L (3.5-5.1); TOTAL BILIRUBIN 0.2 mg/dL (<0.1-1.0); TOTAL PROTEIN 5.9 g/dL (6.4-8.2)
[2021-03-02 06:15] LABS: ABSOLUTE EOSINOPHILS 0.1 thou/uL (0.0-0.7); ABSOLUTE LYMPHOCYTES 0.3 thou/uL (0.8-5.3); ABSOLUTE NEUTROPHILS 4.1 thou/uL (1.6-8.1); METAMYELOCYTES 1 %; MYELOCYTES 1 %; PLATELET ESTIMATE ADEQUATE
[2021-03-02 12:41] LABS: BE 11.1 mmol/L (-2 to +3); pH 7.402 (7.340-7.450)
[2021-03-02 12:46] LABS: PCO2 62.3 mmHg (35.0-45.0)
[2021-03-02 15:11] LABS: CREATININE 0.5 mg/dL (0.6-1.3); POTASSIUM 4.1 mmol/L (3.5-5.1)
[2021-03-03] VITALS (88 sets, daily range): BP systolic 97–139; BP diastolic 34–62
[2021-03-03 05:03] LABS: ABSOLUTE LYMPHOCYTES 0.3 thou/uL (0.8-5.3); ABSOLUTE MONOCYTES 0.2 thou/uL (0.0-1.2); ABSOLUTE NEUTROPHILS 4.4 thou/uL (1.6-8.1); BASOPHILS 0.5 %; EOSINOPHILS 0.9 %; HEMATOCRIT 30.4 % (37.0-47.0); HEMOGLOBIN 9.8 gm/dL (12.0-15.0); LYMPHOCYTES 6.5 %; MCH 27.8 pg (26.0-34.0); MCHC 32.3 g/dL (28.0-37.0); MCV 86.3 fL (80.0-100.0); MONOCYTES 3.3 %; MPV 9.6 fl. (7.2-11.1); NUCLEATED RBCS 0 /100WBC; PLATELET COUNT* 158 thou/uL (150-400); POLYS 88.8 %; RBC 3.52 mil/uL (4.20-5.00); RDW-CV 15.8 % (10.5-14.5)
[2021-03-03 05:25] LABS: CALCIUM 8.2 mg/dL (8.5-10.1); CREATININE 0.5 mg/dL (0.6-1.3); MAGNESIUM 2.3 mg/dL (1.8-2.4); PHOSPHORUS* 3.8 mg/dL (2.5-4.9); POTASSIUM 4.3 mmol/L (3.5-5.1); POTASSIUM 4.4 mmol/L (3.5-5.1); TOTAL BILIRUBIN 0.3 mg/dL (<0.1-1.0)
[2021-03-03 09:04] LABS: PO2 96.1 mmHg (75.0-100.0); pH 7.404 (7.340-7.450)
[2021-03-03 09:05] LABS: PCO2 51.9 mmHg (35.0-45.0)
[2021-03-04] VITALS (64 sets, daily range): BP systolic 94–176; BP diastolic 40–72
[2021-03-04 02:20] LABS: HEMATOCRIT 29.6 % (37.0-47.0); HEMOGLOBIN 9.6 gm/dL (12.0-15.0); MCH 28.1 pg (26.0-34.0); MCHC 32.4 g/dL (28.0-37.0); MCV 86.8 fL (80.0-100.0); RBC 3.41 mil/uL (4.20-5.00); RDW-CV 15.9 % (10.5-14.5); WBC 4.8 thou/uL (4.0-11.0)
[2021-03-04 02:37] LABS: CREATININE 0.5 mg/dL (0.6-1.3); MAGNESIUM 2.2 mg/dL (1.8-2.4); POTASSIUM 4.4 mmol/L (3.5-5.1); TOTAL BILIRUBIN 0.3 mg/dL (<0.1-1.0); TOTAL PROTEIN 5.8 g/dL (6.4-8.2)
[2021-03-04 10:30] LABS: PO2 72.1 mmHg (75.0-100.0); pH 7.464 (7.340-7.450)
[2021-03-04 10:33] LABS: PCO2 53.4 mmHg (35.0-45.0)
[2021-03-05] VITALS (26 sets, daily range): BP systolic 131–180; BP diastolic 45–65
[2021-03-05 04:36] LABS: HEMATOCRIT 32.4 % (37.0-47.0); HEMOGLOBIN 10.5 gm/dL (12.0-15.0); MCHC 32.4 g/dL (28.0-37.0); MCV 86.4 fL (80.0-100.0); MPV 9.9 fl. (7.2-11.1); RBC 3.75 mil/uL (4.20-5.00); WBC 4.4 thou/uL (4.0-11.0)
[2021-03-05 05:07] LABS: ALBUMIN 3.1 g/dL (3.4-5.0); CALCIUM 8.6 mg/dL (8.5-10.1); CREATININE 0.6 mg/dL (0.6-1.3); MAGNESIUM 2.3 mg/dL (1.8-2.4); POTASSIUM 4.6 mmol/L (3.5-5.1); TOTAL BILIRUBIN 0.3 mg/dL (<0.1-1.0)
[2021-03-05 11:16] LABS: LIPASE 112 U/L (73-393)
[2021-03-05 11:28] LABS: TRIGLYCERIDE 249 mg/dL (<150)
[2021-03-05 11:38] LABS: BE 10.2 mmol/L (-2 to +3); PCO2 47.2 mmHg (35.0-45.0); PO2 80.2 mmHg (75.0-100.0); pH 7.487 (7.340-7.450)
[2021-03-05 18:31] LABS: CALCIUM 8.4 mg/dL (8.5-10.1); CREATININE 0.5 mg/dL (0.6-1.3); MAGNESIUM 2.4 mg/dL (1.8-2.4); POTASSIUM 4.4 mmol/L (3.5-5.1)
[2021-03-05 20:07] LABS: URINE BILIRUBIN NEGATIVE (Negative); URINE BLOOD TRACE (Negative); URINE CLARITY SL CLOUDY; URINE COLOR YELLOW; URINE GLUCOSE-RANDOM NEGATIVE (Negative); URINE KETONES NEGATIVE (Negative); URINE LEUKOCYTES-REFLEX 1+ (Negative); URINE NITRITE-REFLEX NEGATIVE (Negative); URINE PROTEIN NEGATIVE (Negative); URINE SPECIFIC GRAVITY <= 1.005 (1.005-1.030); URINE UROBILINOGEN 0.2 E.U./dl (0.2-1.0)
[2021-03-05 20:14] LABS: SQUAMOUS 0-3 Few /LPF (0-3)
[2021-03-05 20:15] LABS: BACTERIA-REFLEX 1-9 Few /HPF (None Seen); CASTS None Seen /LPF (None Seen); CRYSTALS None Seen /LPF (None Seen); URINE RBC 0-2 Rare /HPF (0-2); URINE WBC-REFLEX 0-5 Rare /HPF (0-5); YEAST-REFLEX Present (None Seen)
[2021-03-06] VITALS (27 sets, daily range): BP systolic 110–151; BP diastolic 50–67
[2021-03-06 05:59] LABS: ABSOLUTE LYMPHOCYTES 0.5 thou/uL (0.8-5.3); ABSOLUTE MONOCYTES 0.3 thou/uL (0.0-1.2); BASOPHILS 0.2 %; EOSINOPHILS 0.9 %; HEMATOCRIT 32.7 % (37.0-47.0); HEMOGLOBIN 10.7 gm/dL (12.0-15.0); LYMPHOCYTES 12.7 %; MCH 28.2 pg (26.0-34.0); MCHC 32.8 g/dL (28.0-37.0); MONOCYTES 8.8 %; MPV 10.1 fl. (7.2-11.1); NUCLEATED RBCS 0 /100WBC; PLATELET COUNT* 130 thou/uL (150-400); POLYS 77.4 %; RDW-CV 16.2 % (10.5-14.5); WBC 3.9 thou/uL (4.0-11.0)
[2021-03-06 06:12] LABS: ALBUMIN 3.2 g/dL (3.4-5.0); CALCIUM 8.3 mg/dL (8.5-10.1); CREATININE 0.5 mg/dL (0.6-1.3); MAGNESIUM 2.4 mg/dL (1.8-2.4); POTASSIUM 3.9 mmol/L (3.5-5.1); TOTAL BILIRUBIN 0.4 mg/dL (<0.1-1.0)
[2021-03-06 07:53] LABS: PCO2 41.7 mmHg (35.0-45.0); pH 7.489 (7.340-7.450)
[2021-03-06 15:44] LABS: CALCIUM 8.6 mg/dL (8.5-10.1); CREATININE 0.5 mg/dL (0.6-1.3); POTASSIUM 4.3 mmol/L (3.5-5.1)
[2021-03-07] VITALS (59 sets, daily range): BP systolic 121–155; BP diastolic 54–79
[2021-03-07 05:03] LABS: ABSOLUTE LYMPHOCYTES 0.4 thou/uL (0.8-5.3); ABSOLUTE MONOCYTES 0.4 thou/uL (0.0-1.2); ABSOLUTE NEUTROPHILS 4.1 thou/uL (1.6-8.1); BASOPHILS 0.2 %; EOSINOPHILS 0.5 %; HEMATOCRIT 33.4 % (37.0-47.0); LYMPHOCYTES 8.1 %; MCH 28.1 pg (26.0-34.0); MCHC 32.8 g/dL (28.0-37.0); MCV 85.5 fL (80.0-100.0); MONOCYTES 7.7 %; MPV 9.8 fl. (7.2-11.1); NUCLEATED RBCS 0 /100WBC; PLATELET COUNT* 124 thou/uL (150-400); POLYS 83.5 %; RBC 3.91 mil/uL (4.20-5.00); RDW-CV 16.7 % (10.5-14.5); WBC 4.9 thou/uL (4.0-11.0)
[2021-03-07 05:11] LABS: ALBUMIN 3.4 g/dL (3.4-5.0); CALCIUM 8.9 mg/dL (8.5-10.1); CREATININE 0.6 mg/dL (0.6-1.3); MAGNESIUM 2.5 mg/dL (1.8-2.4); POTASSIUM 4.6 mmol/L (3.5-5.1); TOTAL BILIRUBIN 0.4 mg/dL (<0.1-1.0); TOTAL PROTEIN 6.4 g/dL (6.4-8.2)
[2021-03-07 05:15] LABS: PHOSPHORUS* 5.2 mg/dL (2.5-4.9)
[2021-03-07 16:26] LABS: CALCIUM 8.7 mg/dL (8.5-10.1); CREATININE 0.5 mg/dL (0.6-1.3); MAGNESIUM 2.3 mg/dL (1.8-2.4); POTASSIUM 4.6 mmol/L (3.5-5.1)
[2021-03-07 16:55] LABS: PCO2 39.7 mmHg (35.0-45.0); PO2 72.8 mmHg (75.0-100.0); pH 7.439 (7.340-7.450)
[2021-03-07 16:56] LABS: BE 2.1 mmol/L (-2 to +3)
[2021-03-08] VITALS (79 sets, daily range): BP systolic 111–168; BP diastolic 47–73
[2021-03-08 07:55] LABS: HEMOGLOBIN 11.3 gm/dL (12.0-15.0); MCH 28.6 pg (26.0-34.0); MCHC 33.3 g/dL (28.0-37.0); MCV 85.9 fL (80.0-100.0); MPV 9.6 fl. (7.2-11.1); NUCLEATED RBCS 0 /100WBC; PLATELET COUNT* 114 thou/uL (150-400); RBC 3.96 mil/uL (4.20-5.00); RDW-CV 16.1 % (10.5-14.5); WBC 5.3 thou/uL (4.0-11.0)
[2021-03-08 09:00] LABS: CREATININE 0.5 mg/dL (0.6-1.3); POTASSIUM 4.5 mmol/L (3.5-5.1); TOTAL BILIRUBIN 0.2 mg/dL (<0.1-1.0)
[2021-03-08 09:01] LABS: ALBUMIN 3.4 g/dL (3.4-5.0); CALCIUM 8.8 mg/dL (8.5-10.1); MAGNESIUM 2.3 mg/dL (1.8-2.4); TOTAL PROTEIN 6.4 g/dL (6.4-8.2)
[2021-03-08 10:17] LABS: ABSOLUTE LYMPHOCYTES 0.2 thou/uL (0.8-5.3); ABSOLUTE MONOCYTES 0.3 thou/uL (0.0-1.2); ABSOLUTE NEUTROPHILS 4.8 thou/uL (1.6-8.1); ANISOCYTOSIS 1+; PLATELET ESTIMATE DECREASED; POIKILOCYTOSIS 1+
[2021-03-08 11:40] LABS: BE 3.1 mmol/L (-2 to +3); PCO2 41.2 mmHg (35.0-45.0); PO2 66.4 mmHg (75.0-100.0); pH 7.442 (7.340-7.450)
[2021-03-09] VITALS (17 sets, daily range): BP systolic 108–160; BP diastolic 55–80
[2021-03-09 05:32] LABS: ABSOLUTE LYMPHOCYTES 0.3 thou/uL (0.8-5.3); ABSOLUTE MONOCYTES 0.3 thou/uL (0.0-1.2); ABSOLUTE NEUTROPHILS 6.3 thou/uL (1.6-8.1); BASOPHILS 0.1 %; EOSINOPHILS 0.1 %; HEMOGLOBIN 11.4 gm/dL (12.0-15.0); LYMPHOCYTES 4.9 %; MCH 28.8 pg (26.0-34.0); MCHC 33.4 g/dL (28.0-37.0); MONOCYTES 3.9 %; MPV 9.9 fl. (7.2-11.1); NUCLEATED RBCS 0 /100WBC; PLATELET COUNT* 124 thou/uL (150-400); RBC 3.96 mil/uL (4.20-5.00); RDW-CV 16.8 % (10.5-14.5)
[2021-03-09 05:46] LABS: ALBUMIN 3.4 g/dL (3.4-5.0); CALCIUM 8.4 mg/dL (8.5-10.1); CREATININE 0.5 mg/dL (0.6-1.3); POTASSIUM 3.8 mmol/L (3.5-5.1); TOTAL BILIRUBIN 0.5 mg/dL (<0.1-1.0); TOTAL PROTEIN 6.3 g/dL (6.4-8.2)
[2021-03-09 11:01] LABS: BE 2.4 mmol/L (-2 to +3); PCO2 34.8 mmHg (35.0-45.0); PO2 62.3 mmHg (75.0-100.0); pH 7.484 (7.340-7.450)
[2021-03-10] VITALS: BP 100/43
[2021-03-10 04:04] VITALS: BP 138/69
[2021-03-10 06:21] LABS: HEMATOCRIT 35.2 % (37.0-47.0); HEMOGLOBIN 11.8 gm/dL (12.0-15.0); MCH 28.7 pg (26.0-34.0); MCHC 33.4 g/dL (28.0-37.0); MCV 85.9 fL (80.0-100.0); MPV 9.8 fl. (7.2-11.1); RBC 4.1 mil/uL (4.20-5.00); RDW-CV 17.4 % (10.5-14.5); WBC 8.4 thou/uL (4.0-11.0)
[2021-03-10 06:46] LABS: ALBUMIN 3.5 g/dL (3.4-5.0); CALCIUM 8.7 mg/dL (8.5-10.1); CREATININE 0.5 mg/dL (0.6-1.3); POTASSIUM 3.5 mmol/L (3.5-5.1); TOTAL BILIRUBIN 0.6 mg/dL (<0.1-1.0); TOTAL PROTEIN 6.4 g/dL (6.4-8.2)
[2021-03-10 08:00] VITALS: BP 140/67
[2021-03-10 12:00] VITALS: BP 142/63
[2021-03-10 16:45] VITALS: BP 129/70
[2021-03-11 00:48] VITALS: BP 132/65
[2021-03-11 04:09] VITALS: BP 137/69
[2021-03-11 06:38] LABS: HEMATOCRIT 36.1 % (37.0-47.0); HEMOGLOBIN 11.9 gm/dL (12.0-15.0); MCH 28.3 pg (26.0-34.0); MCHC 32.9 g/dL (28.0-37.0); MPV 10.4 fl. (7.2-11.1); RBC 4.2 mil/uL (4.20-5.00); RDW-CV 16.8 % (10.5-14.5); WBC 9.6 thou/uL (4.0-11.0)
[2021-03-11 06:56] LABS: CALCIUM 9.1 mg/dL (8.5-10.1); CREATININE 0.5 mg/dL (0.6-1.3)
[2021-03-11 06:58] LABS: POTASSIUM 2.9 mmol/L (3.5-5.1)
[2021-03-11 11:12] VITALS: BP 123/64
[2021-03-11 15:39] VITALS: BP 116/62
[2021-03-12 07:02] LABS: ALBUMIN 3.3 g/dL (3.4-5.0); CALCIUM 8.6 mg/dL (8.5-10.1); CREATININE 0.5 mg/dL (0.6-1.3); POTASSIUM 3.7 mmol/L (3.5-5.1); TOTAL BILIRUBIN 0.5 mg/dL (<0.1-1.0); TOTAL PROTEIN 5.9 g/dL (6.4-8.2)
[2021-03-12 07:07] LABS: ABSOLUTE EOSINOPHILS 0.2 thou/uL (0.0-0.7); ABSOLUTE LYMPHOCYTES 0.8 thou/uL (0.8-5.3); ABSOLUTE MONOCYTES 0.3 thou/uL (0.0-1.2); ABSOLUTE NEUTROPHILS 7.4 thou/uL (1.6-8.1); BASOPHILS 0.2 %; EOSINOPHILS 2.7 %; HEMATOCRIT 33.4 % (37.0-47.0); LYMPHOCYTES 8.7 %; MCH 28.3 pg (26.0-34.0); MCHC 33.1 g/dL (28.0-37.0); MCV 85.7 fL (80.0-100.0); MONOCYTES 3.5 %; NUCLEATED RBCS 0 /100WBC; PLATELET COUNT* 127 thou/uL (150-400); POLYS 84.9 %; RDW-CV 17.2 % (10.5-14.5); WBC 8.7 thou/uL (4.0-11.0)
[2021-03-12 08:00] VITALS: BP 115/55
[2021-03-12 12:00] VITALS: BP 106/42
[2021-03-12 16:00] VITALS: BP 125/71
[2021-03-12 23:52] VITALS: BP 129/72
[2021-03-13 04:28] VITALS: BP 129/65
[2021-03-13 05:14] LABS: HEMATOCRIT 35.4 % (37.0-47.0); HEMOGLOBIN 11.7 gm/dL (12.0-15.0); MCH 28.3 pg (26.0-34.0); MCHC 33.1 g/dL (28.0-37.0); MCV 85.5 fL (80.0-100.0); MPV 9.5 fl. (7.2-11.1); RBC 4.14 mil/uL (4.20-5.00); RDW-CV 17.2 % (10.5-14.5); WBC 10.6 thou/uL (4.0-11.0)
[2021-03-13 05:53] LABS: ALBUMIN 3.5 g/dL (3.4-5.0); CALCIUM 8.9 mg/dL (8.5-10.1); CREATININE 0.5 mg/dL (0.6-1.3); MAGNESIUM 1.9 mg/dL (1.8-2.4); POTASSIUM 3.3 mmol/L (3.5-5.1); TOTAL BILIRUBIN 0.5 mg/dL (<0.1-1.0); TOTAL PROTEIN 6.2 g/dL (6.4-8.2)
[2021-03-13 08:00] VITALS: BP 116/74
[2021-03-13 12:00] VITALS: BP 110/61
[2021-03-13 16:00] VITALS: BP 125/73
[2021-03-13 20:00] VITALS: BP 120/75
[2021-03-14] VITALS (7 sets, daily range): BP systolic 120–128; BP diastolic 68–81
[2021-03-14 05:16] LABS: HEMOGLOBIN 11.5 gm/dL (12.0-15.0); MCH 28.6 pg (26.0-34.0); MCHC 33.7 g/dL (28.0-37.0); MCV 84.9 fL (80.0-100.0); MPV 9.4 fl. (7.2-11.1); RBC 4.01 mil/uL (4.20-5.00); RDW-CV 17.5 % (10.5-14.5); WBC 8.4 thou/uL (4.0-11.0)
[2021-03-14 05:22] LABS: CALCIUM 9.6 mg/dL (8.5-10.1); CREATININE 0.5 mg/dL (0.6-1.3); MAGNESIUM 1.8 mg/dL (1.8-2.4); POTASSIUM 3.9 mmol/L (3.5-5.1)
[2021-03-15 02:25] VITALS: BP 121/75
[2021-03-15 05:28] VITALS: BP 117/71
[2021-03-15 05:38] LABS: ABSOLUTE EOSINOPHILS 0.3 thou/uL (0.0-0.7); ABSOLUTE LYMPHOCYTES 1.1 thou/uL (0.8-5.3); ABSOLUTE MONOCYTES 0.4 thou/uL (0.0-1.2); ABSOLUTE NEUTROPHILS 8.4 thou/uL (1.6-8.1); BASOPHILS 0.2 %; EOSINOPHILS 2.8 %; HEMATOCRIT 35.7 % (37.0-47.0); HEMOGLOBIN 11.7 gm/dL (12.0-15.0); MCH 28.3 pg (26.0-34.0); MCHC 32.7 g/dL (28.0-37.0); MCV 86.6 fL (80.0-100.0); MPV 9.4 fl. (7.2-11.1); NUCLEATED RBCS 0 /100WBC; PLATELET COUNT* 184 thou/uL (150-400); RBC 4.12 mil/uL (4.20-5.00); RDW-CV 17.7 % (10.5-14.5); WBC 10.2 thou/uL (4.0-11.0)
[2021-03-15 05:42] LABS: CALCIUM 9.2 mg/dL (8.5-10.1); CREATININE 0.6 mg/dL (0.6-1.3); MAGNESIUM 2.1 mg/dL (1.8-2.4); POTASSIUM 3.8 mmol/L (3.5-5.1)
[2021-03-15 08:00] VITALS: BP 107/60
[2021-03-15 12:00] VITALS: BP 108/67
[2021-03-15 16:00] VITALS: BP 120/71
[2021-03-15 20:00] VITALS: BP 116/69
[2021-03-16] VITALS: BP 95/53
[2021-03-16 04:00] VITALS: BP 96/55
[2021-03-16 05:49] LABS: HEMATOCRIT 31.9 % (37.0-47.0); HEMOGLOBIN 10.7 gm/dL (12.0-15.0); MCH 28.8 pg (26.0-34.0); MCHC 33.5 g/dL (28.0-37.0); MCV 86.1 fL (80.0-100.0); MPV 9.2 fl. (7.2-11.1); NUCLEATED RBCS 0 /100WBC; PLATELET COUNT* 158 thou/uL (150-400); RDW-CV 17.7 % (10.5-14.5); WBC 6.7 thou/uL (4.0-11.0)
[2021-03-16 05:54] LABS: CALCIUM 9.2 mg/dL (8.5-10.1); CREATININE 0.7 mg/dL (0.6-1.3); MAGNESIUM 1.8 mg/dL (1.8-2.4); POTASSIUM 3.7 mmol/L (3.5-5.1)
[2021-03-16 07:17] LABS: ABSOLUTE EOSINOPHILS 0.1 thou/uL (0.0-0.7); ABSOLUTE LYMPHOCYTES 1.5 thou/uL (0.8-5.3); ABSOLUTE MONOCYTES 0.1 thou/uL (0.0-1.2); ABSOLUTE NEUTROPHILS 4.9 thou/uL (1.6-8.1); ANISOCYTOSIS 1+; PLATELET ESTIMATE ADEQUATE; POIKILOCYTOSIS 1+
[2021-03-16 08:00] VITALS: BP 99/59
[2021-03-16 12:37] VITALS: BP 134/66
[2021-03-16 16:47] VITALS: BP 125/74
[2021-03-16 20:00] VITALS: BP 114/66
[2021-03-17 00:23] VITALS: BP 123/60
[2021-03-17 04:58] VITALS: BP 110/56
[2021-03-17 06:33] LABS: ABSOLUTE EOSINOPHILS 0.1 thou/uL (0.0-0.7); ABSOLUTE LYMPHOCYTES 1.1 thou/uL (0.8-5.3); ABSOLUTE MONOCYTES 0.3 thou/uL (0.0-1.2); ABSOLUTE NEUTROPHILS 4.2 thou/uL (1.6-8.1); BASOPHILS 0.3 %; EOSINOPHILS 1.9 %; HEMATOCRIT 30.4 % (37.0-47.0); HEMOGLOBIN 10.2 gm/dL (12.0-15.0); LYMPHOCYTES 18.7 %; MCH 28.6 pg (26.0-34.0); MCHC 33.5 g/dL (28.0-37.0); MCV 85.4 fL (80.0-100.0); MONOCYTES 5.3 %; MPV 8.9 fl. (7.2-11.1); NUCLEATED RBCS 0 /100WBC; PLATELET COUNT* 140 thou/uL (150-400); POLYS 73.8 %; RBC 3.56 mil/uL (4.20-5.00); RDW-CV 17.7 % (10.5-14.5); WBC 5.7 thou/uL (4.0-11.0)
[2021-03-17 06:52] LABS: CALCIUM 8.8 mg/dL (8.5-10.1); CREATININE 0.6 mg/dL (0.6-1.3); MAGNESIUM 1.9 mg/dL (1.8-2.4); POTASSIUM 3.8 mmol/L (3.5-5.1)
[2021-03-17 08:00] VITALS: BP 110/49
[2021-03-17 12:00] VITALS: BP 110/55
[2021-03-17 16:00] VITALS: BP 117/97
[2021-03-17 20:00] VITALS: BP 109/68
[2021-03-18] VITALS (7 sets, daily range): BP systolic 101–147; BP diastolic 39–76
[2021-03-18 06:35] LABS: HEMATOCRIT 30.5 % (37.0-47.0); HEMOGLOBIN 10.1 gm/dL (12.0-15.0); MCH 28.8 pg (26.0-34.0); MCHC 33.3 g/dL (28.0-37.0); MCV 86.6 fL (80.0-100.0); RBC 3.52 mil/uL (4.20-5.00); RDW-CV 17.4 % (10.5-14.5); WBC 5.6 thou/uL (4.0-11.0)
[2021-03-18 06:43] LABS: CALCIUM 9.2 mg/dL (8.5-10.1); CREATININE 0.6 mg/dL (0.6-1.3)
[2021-03-19] VITALS: BP 92/54
[2021-03-19 04:00] VITALS: BP 99/55
[2021-03-19 05:44] LABS: HEMATOCRIT 31.9 % (37.0-47.0); HEMOGLOBIN 10.6 gm/dL (12.0-15.0); MCH 28.7 pg (26.0-34.0); MCHC 33.3 g/dL (28.0-37.0); MCV 86.2 fL (80.0-100.0); MPV 9.1 fl. (7.2-11.1); RBC 3.7 mil/uL (4.20-5.00); RDW-CV 17.6 % (10.5-14.5); WBC 8.4 thou/uL (4.0-11.0)
[2021-03-19 05:52] LABS: CALCIUM 9.1 mg/dL (8.5-10.1); CREATININE 0.6 mg/dL (0.6-1.3); POTASSIUM 3.7 mmol/L (3.5-5.1)
[2021-03-19 08:14] VITALS: BP 116/72
[2021-03-19 13:27] VITALS: BP 113/67
[2021-03-19 16:00] VITALS: BP 104/53
[2021-03-19 20:05] VITALS: BP 123/64
[2021-03-20 01:15] VITALS: BP 97/53
[2021-03-20 06:38] VITALS: BP 90/54
[2021-03-20 06:40] LABS: HEMATOCRIT 29.2 % (37.0-47.0); HEMOGLOBIN 9.6 gm/dL (12.0-15.0); MCH 28.9 pg (26.0-34.0); MCV 87.6 fL (80.0-100.0); MPV 8.8 fl. (7.2-11.1); RBC 3.34 mil/uL (4.20-5.00); RDW-CV 17.4 % (10.5-14.5)
[2021-03-20 06:47] LABS: CALCIUM 8.5 mg/dL (8.5-10.1); CREATININE 0.6 mg/dL (0.6-1.3); POTASSIUM 3.5 mmol/L (3.5-5.1)
[2021-03-20 09:02] VITALS: BP 102/57
[2021-03-20 12:00] VITALS: BP 119/59
[2021-03-20 16:00] VITALS: BP 104/58
[2021-03-20 19:35] VITALS: BP 112/52
[2021-03-21 00:14] VITALS: BP 110/59
[2021-03-21 04:00] VITALS: BP 100/63
[2021-03-21 05:36] LABS: CALCIUM 8.7 mg/dL (8.5-10.1); CREATININE 0.5 mg/dL (0.6-1.3); MAGNESIUM 1.7 mg/dL (1.8-2.4); POTASSIUM 3.6 mmol/L (3.5-5.1)
[2021-03-21 08:00] VITALS: BP 116/66
[2021-03-21 12:55] VITALS: BP 127/64
[2021-03-21] MEDS ORDERED: ELIQUIS5 MG PO (13:24)
[2021-03-21] MEDS ORDERED: DEXAMETHASONE1 MG PO (13:26)
[2021-03-21] MEDS ORDERED: PROTONIX40 M2 PO (13:27)
[2021-03-21] MEDS ORDERED: HUMALOG100 UNIT/1 SUBQ (13:31)
[2021-03-21] MEDS ORDERED: LASIX 20 MG TAB20 MG PO (13:34)
[2021-03-21] MEDS ORDERED: MIDODRINE HCL 55 M1 PO (13:34)
[2021-03-21] MEDS ORDERED: SPIRONOLACTONE25 MG PO (13:34)
[2021-03-21 16:24] VITALS: BP 123/59
[2021-03-21 17:42] VITALS: BP 123/59
== END 2021-03-21 21:32 | DRG 207 ==
LOC: M.ERS 20:33 → M.2W 22:07 → M.ICU 22:07 → M.TBA-ER 22:07 → M.ICU 23:23 → M.2W 03-09 16:55
PROVIDERS: Family Medicine; Internal Medicine; Internal Medicine Critical Care Medicine; Nurse Practitioner Family; Pediatrics; ADMIT Internal Medicine; ATTEND Internal Medicine
DX: U07.1 COVID-19 (principal); J80 Acute respiratory distress syndrome; J12.82 Pneumonia due to coronavirus disease 2019; J15.211 Pneumonia due to Methicillin susceptible Staphylococcus aureus; I26.99 Other pulmonary embolism without acute cor pulmonale; K21.9 Gastro-esophageal reflux disease without esophagitis; J45.909 Unspecified asthma, uncomplicated; F32.9 Major depressive disorder, single episode, unspecified; E11.9 Type 2 diabetes mellitus without complications; I10 Essential (primary) hypertension; G43.909 Migraine, unspecified, not intractable, without status migrainosus; I95.9 Hypotension, unspecified; K58.9 Irritable bowel syndrome, unspecified; Z90.49 Acquired absence of other specified parts of digestive tract; Z88.6 Allergy status to analgesic agent; Z88.8 Allergy status to other drugs, medicaments and biological substances; Z87.891 Personal history of nicotine dependence

== ENCOUNTER 2021-03-21 17:41 | Inpatient (IN) | payer OTHER ==
[~2021-03-21] VITALS: Ht 160 cm; Wt 73.7 kg
[~2021-03-21 17:41] MED LIST changes: +DEXAMETHASONE1 MG PO; +ELIQUIS5 MG PO; +HUMALOG100 UNIT/1 SUBQ; +LASIX 20 MG TAB20 MG PO; +MIDODRINE HCL 55 M1 PO; +PROTONIX40 M2 PO; +SPIRONOLACTONE25 MG PO
[2021-03-21 21:00] VITALS: BP 120/56
[2021-03-22 05:13] LABS: HEMATOCRIT 27.1 % (37.0-47.0); MCH 29.1 pg (26.0-34.0); MCHC 33.2 g/dL (28.0-37.0); MCV 87.4 fL (80.0-100.0); MPV 8.7 fl. (7.2-11.1); RBC 3.1 mil/uL (4.20-5.00); WBC 4.2 thou/uL (4.0-11.0)
[2021-03-22 05:32] LABS: CALCIUM 8.2 mg/dL (8.5-10.1); CREATININE 0.5 mg/dL (0.6-1.3); POTASSIUM 3.4 mmol/L (3.5-5.1)
[2021-03-22 08:00] VITALS: BP 121/66
[2021-03-22 20:12] VITALS: BP 100/53
[2021-03-23 07:48] VITALS: BP 139/76
[2021-03-23 13:45] LABS: CALCIUM 8.5 mg/dL (8.5-10.1); CREATININE 0.8 mg/dL (0.6-1.3); MAGNESIUM 1.6 mg/dL (1.8-2.4); POTASSIUM 4.5 mmol/L (3.5-5.1)
[2021-03-23 20:00] VITALS: BP 128/71
[2021-03-24 06:21] LABS: HEMATOCRIT 27.4 % (37.0-47.0); HEMOGLOBIN 9.2 gm/dL (12.0-15.0); MCH 29.4 pg (26.0-34.0); MCHC 33.4 g/dL (28.0-37.0); MCV 87.8 fL (80.0-100.0); MPV 8.6 fl. (7.2-11.1); RBC 3.12 mil/uL (4.20-5.00); RDW-CV 18.3 % (10.5-14.5); WBC 4.5 thou/uL (4.0-11.0)
[2021-03-24 06:37] LABS: CALCIUM 8.4 mg/dL (8.5-10.1); CREATININE 0.6 mg/dL (0.6-1.3)
[2021-03-24 06:42] LABS: POTASSIUM 3.5 mmol/L (3.5-5.1)
[2021-03-24 08:00] VITALS: BP 135/72
[2021-03-24 20:00] VITALS: BP 134/73
[2021-03-25 05:58] LABS: CALCIUM 9.1 mg/dL (8.5-10.1); CREATININE 0.5 mg/dL (0.6-1.3); MAGNESIUM 1.8 mg/dL (1.8-2.4); POTASSIUM 3.9 mmol/L (3.5-5.1)
[2021-03-25 07:51] VITALS: BP 123/69
[2021-03-25 14:15] VITALS: BP 123/69
[2021-03-25 19:32] VITALS: BP 133/69
[2021-03-26 05:16] LABS: ABSOLUTE LYMPHOCYTES 0.7 thou/uL (0.8-5.3); ABSOLUTE MONOCYTES 0.3 thou/uL (0.0-1.2); ABSOLUTE NEUTROPHILS 4.4 thou/uL (1.6-8.1); BASOPHILS 0.6 %; EOSINOPHILS 0.5 %; HEMATOCRIT 28.7 % (37.0-47.0); HEMOGLOBIN 9.6 gm/dL (12.0-15.0); LYMPHOCYTES 13.4 %; MCH 29.5 pg (26.0-34.0); MCHC 33.6 g/dL (28.0-37.0); MCV 87.6 fL (80.0-100.0); MONOCYTES 5.4 %; MPV 8.8 fl. (7.2-11.1); NUCLEATED RBCS 0 /100WBC; PLATELET COUNT* 143 thou/uL (150-400); POLYS 80.1 %; RBC 3.27 mil/uL (4.20-5.00); RDW-CV 18.2 % (10.5-14.5); WBC 5.5 thou/uL (4.0-11.0)
[2021-03-26 05:29] LABS: ALBUMIN 3.1 g/dL (3.4-5.0); CREATININE 0.6 mg/dL (0.6-1.3); MAGNESIUM 1.7 mg/dL (1.8-2.4); PHOSPHORUS* 4.4 mg/dL (2.5-4.9); POTASSIUM 3.9 mmol/L (3.5-5.1); TOTAL BILIRUBIN 0.3 mg/dL (<0.1-1.0); TOTAL PROTEIN 6.1 g/dL (6.4-8.2)
[2021-03-26 08:15] VITALS: BP 142/58; BP 150/66
[2021-03-26 19:00] VITALS: BP 126/67
[2021-03-27 08:26] VITALS: BP 131/56
[2021-03-27 19:00] VITALS: BP 109/62
[2021-03-28 04:58] LABS: CALCIUM 9.2 mg/dL (8.5-10.1); CREATININE 0.6 mg/dL (0.6-1.3); POTASSIUM 3.4 mmol/L (3.5-5.1)
[2021-03-28 06:01] LABS: HEMATOCRIT 29.5 % (37.0-47.0); HEMOGLOBIN 9.9 gm/dL (12.0-15.0); MCHC 33.6 g/dL (28.0-37.0); MCV 86.5 fL (80.0-100.0); MPV 8.8 fl. (7.2-11.1); RBC 3.42 mil/uL (4.20-5.00); RDW-CV 18.5 % (10.5-14.5); WBC 5.6 thou/uL (4.0-11.0)
[2021-03-28 07:20] VITALS: BP 139/68
[2021-03-28] MEDS ORDERED: LASIX 40 MG TAB40 M1 PO (14:17)
[2021-03-28] MEDS ORDERED: IPRAT-ALBUT 0.5-3 ML INH (14:17)
[2021-03-28] MEDS ORDERED: FLONASE 0.05%50 MCG NASAL (14:17)
[2021-03-28] MEDS ORDERED: SPIRONOLACTONE25 MG PO (14:17)
[2021-03-28] MEDS ORDERED: COLESTIPOL HCL1 G1 PO (14:17)
[2021-03-28] MEDS ORDERED: NEBULIZER MISCELL (14:17)
[2021-03-28] MEDS ORDERED: ZOCOR20 MG PO (14:17)
[2021-03-28] MEDS ORDERED: ELIQUIS5 MG PO (14:17)
[2021-03-28] MEDS ORDERED: BROVANA15 MCG/2 M INH (14:17)
[2021-03-28] MEDS ORDERED: PROTONIX40 M2 PO (14:17)
[2021-03-28] MEDS ORDERED: DEXAMETHASONE1 MG PO (14:17)
[2021-03-28] MEDS ORDERED: FERREX 150 PLU1 EAC1 PO (14:17)
[2021-03-28] MEDS ORDERED: SINGULAIR 10 MG10 M1 PO (14:17)
[2021-03-28] MEDS ORDERED: PULMICORT0.5 MG/2 M INH (14:17)
[2021-03-28] MEDS ORDERED: GLIMEPIRIDE4 MG PO (14:17)
[2021-03-28 14:26] VITALS: BP 139/68
== END 2021-03-28 17:56 | disposition home or self-care (01) | DRG 947 ==
LOC: M.REH 17:41
PROVIDERS: Family Medicine; Internal Medicine; Internal Medicine Critical Care Medicine; ADMIT Physical Medicine & Rehabilitation; ATTEND Physical Medicine & Rehabilitation
PROC: 5A09357 Assistance with Respiratory Ventilation, Less than 24 Consecutive Hours, Continuous Positive Airway Pressure (ICD-10-PCS; principal; 2021-03-24)
PROC: 5A0935A Assistance with Respiratory Ventilation, Less than 24 Consecutive Hours, High Flow/Velocity Cannula (ICD-10-PCS; 2021-03-25)
PROC: 5A09357 Assistance with Respiratory Ventilation, Less than 24 Consecutive Hours, Continuous Positive Airway Pressure (ICD-10-PCS; 2021-03-26)
PROC: 5A09357 Assistance with Respiratory Ventilation, Less than 24 Consecutive Hours, Continuous Positive Airway Pressure (ICD-10-PCS; 2021-03-27)
PROC: 5A09357 Assistance with Respiratory Ventilation, Less than 24 Consecutive Hours, Continuous Positive Airway Pressure (ICD-10-PCS; 2021-03-28)
DX: R53.81 Other malaise (principal); I26.99 Other pulmonary embolism without acute cor pulmonale; J80 Acute respiratory distress syndrome; J45.909 Unspecified asthma, uncomplicated; E11.9 Type 2 diabetes mellitus without complications; K21.9 Gastro-esophageal reflux disease without esophagitis; G43.909 Migraine, unspecified, not intractable, without status migrainosus; I10 Essential (primary) hypertension; K58.9 Irritable bowel syndrome, unspecified; F32.9 Major depressive disorder, single episode, unspecified; E87.6 Hypokalemia; Z87.891 Personal history of nicotine dependence; Z88.6 Allergy status to analgesic agent; Z91.018 Allergy to other foods; Z86.16 Personal history of COVID-19; Z87.01 Personal history of pneumonia (recurrent)

== ENCOUNTER → 2021-04-16 | Outpatient (CLI) | payer OTHER ==
[~2021-04-16] MED LIST changes: +BROVANA15 MCG/2 M INH; +FERREX 150 PLU1 EAC1 PO; +FLONASE 0.05%50 MCG NASAL; +GLIMEPIRIDE4 MG PO; +IPRAT-ALBUT 0.5-3 ML INH; +LASIX 40 MG TAB40 M1 PO; +NEBULIZER MISCELL; +PULMICORT0.5 MG/2 M INH
== END ==
LOC: M.RAD 16:54
PROVIDERS: ATTEND Internal Medicine Critical Care Medicine
DX: U07.1 COVID-19 (principal); J96.01 Acute respiratory failure with hypoxia

== ENCOUNTER → 2021-06-26 | Outpatient (CLI) | payer OTHER | LOC: M.LAB 15:05 | PROVIDERS: ATTEND Anesthesiology | DX: Z01.812 Encounter for preprocedural laboratory examination (principal); Z20.822 Contact with and (suspected) exposure to COVID-19; E87.6 Hypokalemia ==

== ENCOUNTER 2021-08-23 09:31 | Emergency (ER) | payer BC, OTHER ==
[~2021-08-23] VITALS: Ht 162.6 cm; Wt 77.1 kg
[2021-08-23] MEDS ORDERED: HAIR, SKIN & N1 EAC2 PO (09:48)
[2021-08-23] MEDS ORDERED: COZAAR 25 MG TA25 M1 PO (09:48)
[2021-08-23] MEDS ORDERED: IMITREX 50 MG T50 MG PO (09:49)
[2021-08-23 12:34] LABS: URINE BILIRUBIN NEGATIVE (Negative); URINE BLOOD NEGATIVE (Negative); URINE CLARITY CLEAR; URINE COLOR YELLOW; URINE GLUCOSE-RANDOM NEGATIVE (Negative); URINE KETONES NEGATIVE (Negative); URINE LEUKOCYTES-REFLEX NEGATIVE (Negative); URINE NITRITE-REFLEX NEGATIVE (Negative); URINE PROTEIN NEGATIVE (Negative); URINE SPECIFIC GRAVITY >= 1.030 (1.005-1.030); URINE UROBILINOGEN 0.2 E.U./dl (0.2-1.0)
[2021-08-23 13:58] VITALS: BP 120/73
== END 2021-08-23 13:58 | disposition left against medical advice (07) ==
LOC: M.ERS 09:31
PROVIDERS: Physician Assistant
DX: G43.909 Migraine, unspecified, not intractable, without status migrainosus (principal); Z20.822 Contact with and (suspected) exposure to COVID-19; Z53.21 Procedure and treatment not carried out due to patient leaving prior to being seen by health care provider